=== PATIENT | male | born 1955 | race Hispanic/Latino ===

== ENCOUNTER 2018-08-31 06:52 | Day surgery (SDC) | payer MEDICARE ==
[2018-08-29 09:50] VITALS: BP 127/57
[2018-08-29 10:14] LABS: APPEARANCE,URINE Clear (CLEAR); BILIRUBIN,URINE Negative (NEGATIVE); COLOR,URINE Yellow (YELLOW); GLUCOSE, URINE (UA) 250 mg/dL (NEGATIVE); KETONES,URINE Negative (NEGATIVE); LEUKOCYTE ESTERASE ,URINE Negative (NEGATIVE); NITRATE,URINE Negative (NEGATIVE); OCCULT BLOOD,URINE Negative (NEGATIVE); PH,URINE >=9.0 (5.0-8.0); PROTEIN,URINE 300 mg/dL (NEGATIVE); UROBILINOGEN,URINE 0.2 mg/dL (0.2-1.0)
[2018-08-29 10:20] LABS: BASOPHILS % (AUTO) 0.9 % (0.0-5.0); EOSINOPHILS % (AUTO) 4.8 % (0.0-8.0); HEMATOCRIT 32.7 % (42-54); LYMPHOCYTES % (AUTO) 10.6 % (21.0-51.0); MEAN CORPUSCULAR HEMOGLOBIN 29.2 pg (27.0-33.0); MEAN CORPUSCULAR HGB CONC 33.4 g/dL (32.0-36.0); MEAN CORPUSCULAR VOLUME 87.3 fL (79-99); MONOCYTES % (AUTO) 6.8 % (3.0-13.0); NEUTROPHILS % (AUTO) 76.9 % (40.0-77.0); PLATELET COUNT (AUTO) 137 K/uL (130-400); RED BLOOD CELL COUNT(AUTO) 3.74 MIL/uL (4.50-6.20); RED CELL DISTRIBUTION WIDTH 16.2 % (11.0-15.5); WHITE BLOOD COUNT (AUTO) 7.3 K/uL (4.8-10.8)
[2018-08-29 10:29] LABS: BACTERIA,URINE None Seen /HPF (None Seen); RBC,URINE 0-1 /HPF (0-1); WBC,URINE 0-1 /HPF (0-1)
[2018-08-29 10:30] LABS: CREATININE 3.3 mg/dL (0.5-1.5); POTASSIUM 4.8 mmol/L (3.5-5.1)
[2018-08-29 11:15] LABS: INR 1.14 (0.85-1.15); PARTIAL THROMBOPLASTIN TIME 31.3 SEC (26.3-35.5); PROTHROMBIN TIME 11.9 SEC (9.6-11.6)
[2018-08-31] VITALS (9 sets, daily range): BP systolic 125–138; BP diastolic 56–66
[~2018-08-31] VITALS: Ht 177.8 cm; Wt 71.3 kg
[~2018-08-31 06:52] MED LIST: AMLO5TAB9 PO; ATORVASTATIN PO; CALCIUM ACETATE PO; CARV3.12 PO; FISH1CAP50 PO; HYDRALAZINE; SODIUM CHLORIDE 0.9% 1000ML 1,000 ML IV ONE; SODIUM CHLORIDE 0.9% 500ML 500 ML IV SCH; VITAMIN D PO; VITAMIN PO; [UNRECOGNIZED DRUG - OTHER] PO
[2018-08-31] MEDS ORDERED: AMLO10TA7 PO (07:41)
[2018-08-31] MEDS ORDERED: CALC667T6 PO (07:41)
[2018-08-31] MEDS ORDERED: FOLI1TAB61 PO (07:41)
[2018-08-31] MEDS ORDERED: HYDR-4154 PO (07:41)
[2018-08-31] MEDS ORDERED: ATOR10TA69 PO (07:41)
[2018-08-31] MEDS ORDERED: IOHEXOL 350 MG/ML 100ML INFUS..BTL IV ONE (10:21)
[2018-08-31] MEDS ORDERED: LIDOCAINE HCL 1% 20 ML VIAL ONE (10:21)
[2018-08-31] MEDS ORDERED: HEPARIN SODIUM 1000UNIT/ML 10ML VIAL ONE (10:21)
[2018-08-31] MEDS ORDERED: IOHEXOL-350 50ML VIAL IV ONE (10:21)
--- NOTE | 2018-08-31 10:30 | NUR ---
PROCEDURE PT TAKEN TO [employer] FOR PROCEDURE VIA BED, NO DISTRESS NOTED. FAMILY AT BEDSIDE.
[2018-08-31] MEDS ORDERED: MIDAZOLAM HCL 1 MG/ML 2ML VIAL ONE (10:48)
--- NOTE | 2018-08-31 11:45 | NUR ---
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 PT AWAKE AND ALERT IN BED,NO DISTRESS NOTED. PLAN OF CARE DISCUSS WITH PATIENT / PTS SPOUSE, PT INSTRUCTED TO KEEP BEDREST FOR 3 HRS. CALL LIGHT WITHIN REACH, SPOUSE AT BEDSIDE.
--- NOTE | 2018-08-31 15:30 | NUR ---
dc dc instructions given to pts spouse instructed to f/u with dr. parks on 09-07-18, left groin dressing dry and intact, see post cath assessment. vs stable. no hematoma or bleeding noted to left groin, piv removed, site asymptomatic , catheter intact,
--- NOTE | 2018-08-31 15:35 | NUR ---
dc pt dc home via w[facility], no distress noted. denied any pain or discomforts. accompanied by spouse
== END 2018-08-31 15:35 | disposition home or self-care (01) ==
LOC: DAH 06:52
PROVIDERS: ATTEND Internal Medicine Cardiovascular Disease
DX: I25.118 Atherosclerotic heart disease of native coronary artery with other forms of angina pectoris (principal); I13.2 Hypertensive heart and chronic kidney disease with heart failure and with stage 5 chronic kidney disease, or end stage renal disease; E11.22 Type 2 diabetes mellitus with diabetic chronic kidney disease; N18.6 End stage renal disease; I50.40 Unspecified combined systolic (congestive) and diastolic (congestive) heart failure; I25.10 Atherosclerotic heart disease of native coronary artery without angina pectoris; E78.5 Hyperlipidemia, unspecified; Z79.84 Long term (current) use of oral hypoglycemic drugs; Z99.2 Dependence on renal dialysis; Z79.899 Other long term (current) drug therapy; Z90.49 Acquired absence of other specified parts of digestive tract; Z89.431 Acquired absence of right foot
CPT/HCPCS: 36415; 71045; 80048; 81001; 82948 ×2; 85025; 85610; 85730; 93005; 93458; A4606; C1760; C1894; J1644; J2250; J7030; Q9967 ×2; 99156; 99157